=== PATIENT | female | born 1985 | race African-American/Black ===

== ENCOUNTER 2020-11-21 10:16 | Emergency (ER) | payer OTHER ==
[2020-11-21 10:34] VITALS: BP 116/74
--- NOTE | 2020-11-21 11:18 | ED Physician Documentation ---
PD HPI ABD PAIN - Stated complaint Stated Complaint: R SIDE BACK/ABN PX/ R LEG PX - Chief complaint Chief Complaint: Abd Pain - History obtained from History obtained from: Patient - History of Present Illness Timing - onset: Today (4) Timing - duration: Hours (2) Timing - details: Abrupt onset, Now resolved Quality: Cramping, Aching, Pain Location: RUQ Radiation: Upper back Improved by: No: Laying still Worsened by: Moving. No: Breathing Associated symptoms: Nausea (briefly). No: Fever, Vomiting, Diarrhea Similar symptoms before: Diagnosis (she says pain is similar to her gallbladder problems but had CCY and had not had pain since its removal.) Recently seen: Not recently seen Review of Systems Constitutional: denies: Fever, Chills Nose: denies: Rhinorrhea / runny nose, Congestion Throat: denies: Sore throat Respiratory: denies: Cough GI: reports: Abdominal Pain (just this morning; no other recent episodes.), Nausea. denies: Vomiting, Constipation, Diarrhea : denies: Dysuria, Frequency Skin: denies: Rash, Lesions Musculoskeletal: reports: Extremity pain (right lateral hip pain after slipping on wet surface couple days ago. Did not fall nor impact the area. Pain with step off part of walking. Not hurting for just standing/weight bearing.) Neurologic: denies: Near syncope PD PAST MEDICAL HISTORY - Past Medical History Past Medical History: No - Past Surgical History Past Surgical History: Yes General: Cholecystectomy, Colonoscopy /COMMUNICATIONS DIRECTOR: Tubal ligation - Allergies Allergies/Adverse Reactions: Allergies Allergy/AdvReac Type Severity Reaction Status Date / Time No Known Drug Allergies Allergy Verified 11/21/20 10:48 - Social History Does the pt smoke?: No Smoking Status: Never smoker Does the pt drink ETOH?: Yes ETOH Use: Wine Does the pt have substance abuse?: No PD ED PE NORMAL - Vitals Vital signs reviewed: Yes - General General: Alert and oriented X 3, No acute distress, Well developed/nourished - HEENT HEENT: Pharynx benign - Neck Neck: Supple, no meningeal sign, No adenopathy - Cardiac Cardiac: RRR, No murmur - Respiratory Respiratory: Clear bilaterally - Abdomen Abdomen: Normal bowel sounds, Soft, Non tender, Non distended - Back Back: No CVA TTP - Derm Derm: Normal color, Warm and dry - Extremities Extremities: Other (right lateral hip above trochanter area with soft tissue tenderness. Hurts for external rotation and abduction. No pain with internal rotation nor impaction. Good ROM of the hip. ) - Neuro Neuro: Alert and oriented X 3, No motor deficit, Normal speech Results - Vitals Vitals: Oxygen O2 Source Room air PD MEDICAL DECISION MAKING - ED course Complexity details: reviewed results, re-evaluated patient, considered differential (RUQ abd pain. Seems unrelated right lateral hip strain. Could eval abd pain with labs and U/S; but pain is resolved now and pt prefers to wait and see if recurrent episodes.), d/w patient Departure - Departure Disposition: 01 Home, Self Care Clinical Impression: Acute upper abdominal pain Hip strain Qualifiers: Encounter type: initial encounter Laterality: right Qualified Code(s): S76.011A - Strain of muscle, fascia and tendon of right hip, initial encounter Condition: Stable Record reviewed to determine appropriate education?: Yes Instructions: ED Abdominal Pain Unkn Cause, ED Sprain Hip Comments: The abdominal pain episode could represent some temporary sludging or partial blockage of the bile duct versus irritation or inflammation of the pancreas or even just the stomach in the area. It is reasonable to forego any testing at this point since you are feeling better and are not tender. However if you have further symptoms through the day or recurrent episodes in the near future, it would be prudent to do some simple blood tests and ultrasound to evaluate for any inflammation of the liver or pancreas or clogging of the bile duct. These are less likely to be an ongoing problem if you are feeling better at this point. Regarding your hip, it does sound like a muscle strain and I would suggest just activity as tolerated with some anti-inflammatories regularly over the next several days. This could include medication such as ibuprofen 600 mg 3 times a day with food for the next 4 to 5 days and add Tylenol if needed. Discharge Date/Time: 11/21/20 12:00
== END 2020-11-21 12:00 | disposition home or self-care (01) ==
LOC: ED 10:16
DX: S76.011A Strain of muscle, fascia and tendon of right hip, initial encounter (principal); W18.40XA Slipping, tripping and stumbling without falling, unspecified, initial encounter; R10.11 Right upper quadrant pain
CPT/HCPCS: 99281; 99284

== ENCOUNTER 2021-04-16 08:00 | Outpatient (CLI) | payer OTHER | END 2021-04-16 23:59 | LOC: LAB.N 08:00 | PROVIDERS: ATTEND Nurse Practitioner | DX: R06.02 Shortness of breath (principal); J34.89 Other specified disorders of nose and nasal sinuses; Z20.822 Contact with and (suspected) exposure to COVID-19 | CPT/HCPCS: 87275; 87276 ==

== ENCOUNTER 2021-08-04 08:00 | Outpatient (CLI) | payer OTHER | END 2021-08-04 23:59 | disposition home or self-care (01) | LOC: LAB.N 08:00 | PROVIDERS: ATTEND Physician Assistant Medical | DX: J06.9 Acute upper respiratory infection, unspecified (principal); Z20.822 Contact with and (suspected) exposure to COVID-19 ==